=== PATIENT | female | born 1980 ===

== ENCOUNTER 2023-11-14 21:27 | Emergency (ER) | payer OTHER, SELFPAY ==
[2023-11-14 21:28] VITALS: BMI 23.8
[2023-11-14 21:30] VITALS: BP 124/84
[2023-11-14 21:53] LABS: % Basophils 0.8 % (0-2); % Eosinophils 0.9 % (0-6); % Immature Granulocytes 0.1 % (0-0.5); % Lymphocytes 40.6 % (20.5-51.1); % Monocytes 6.4 % (1.7-9.3); % Neutrophils 51.2 % (42.2-75.2); Absolute Basophils 0.1 10^3/uL (0-0.2); Absolute Eosinophils 0.1 10^3/uL (0-0.7); Absolute Lymphocytes 3.2 10^3/uL (1.2-3.4); Absolute Monocytes 0.5 10^3/uL (0.1-0.6); Hematocrit 37.4 % (37.0-47.0); Hemoglobin 12.6 g/dL (12.0-16.0); Mean Corp Hgb Conc. 33.7 g/dL (33.0-37.0); Mean Corpuscular Hgb 29.6 pg (27.0-31.0); Mean Corpuscular Volume 87.8 fL (81.0-99.0); Mean Platelet Volume 10.5 fL (7.4-10.4); Nucleated Red Blood Cells % 0 %; Platelet Count 253 10^3/uL (130-400); Red Blood Cell Count 4.26 10^6/uL (4.20-5.40); Red Cell Dist. Width 12.2 % (11.5-14.5); White Blood Cell Count 7.8 10^3/uL (4.8-10.8)
[2023-11-14 22:06] VITALS: BP 110/53
[2023-11-14 22:07] LABS: ALT (SGPT) 12 U/L (0-35); AST (SGOT) 20 U/L (14-36); Albumin 3.9 g/dl (3.5-5.0); Alkaline Phosphatase 63 U/L (38-126); Blood Urea Nitrogen 15 mg/dl (7-17); Calcium 9.3 mg/dl (8.4-10.2); Carbon Dioxide 30 mmol/L (22-30); Chloride 103 mmol/L (98-107); Glucose 110 mg/dl (70-99); Potassium 4.3 mmol/L (3.5-5.1); Sodium 139 mmol/L (135-145); Total Bilirubin 0.3 mg/dl (0.2-1.3); Total Protein 6.3 g/dl (6.3-8.2); eGFR > 60.00
[2023-11-14 22:17] LABS: Troponin I < 0.012 ng/ml
--- NOTE | 2023-11-14 22:32 | ED.GENMED ---
History of Present Illness
General
Chief Complaint: Chest Pain
Source: patient and family ([id number])
Exam Limitations: none
Time Seen by Provider: 11/14/23 21:49
Nursing documentation reviewed up to this point in time: agreed with
Travel History
Have you had any contact with someone who has COVID-19?: No
Do you have any symptoms of coronavirus? Fever > 100 degrees, chills, cough, shortness of breath, sore throat, loss of taste or smell, muscle aches, or headache?: No
History of Present Illness
History of Present Illness:
The patient is a healthy 42-year-old female who comes in with complaints of left-sided neck pain that started yesterday. Patient reports that the pain seems to radiate down into her left upper chest and down towards her left shoulder. Patient
reports that when she moves her head from [id number], she feels extreme pain and stiffness in her left neck. Patient denies shortness of breath and cough. She denies any recent long car rides or plane rides. She denies leg pain and leg
swelling. He denies a history of PE and DVT.
Past History
Past History
ED Past Medical History: None
ED Past Surgical History:
Social History
Tobacco: Non-smoker
Alcohol: None
Drug: None
Personal:
Living: with family
Employment: Employed
Family History
Family History: Other
Review of Systems
Review of Systems
Allergies reviewed?: Yes
Other source history: family
All Other Systems: ROS reviewed and negative except as documented in HPI and ROS
Constitutional: Reports no symptoms
EENT: Reports no symptoms
Respiratory: Reports no symptoms
Cardiac: Reports chest pain
ABD/GI: Reports no symptoms
: Reports no symptoms
Musculoskeletal: Reports muscle pain, muscle stiffness and neck pain
Skin: Reports no symptoms
Neurological: Reports no symptoms
Endocrine: Reports no symptoms
Hematologic/Lymphatic: Reports no symptoms
Psychiatric: Reports no symptoms
Phy Exam
Physical Exam
Physical Exam:
Physical Exam
General: no apparent distress, not acutely ill
Neck: supple. Tenderness along left lateral soft tissue neck area extending towards left humerus
Heart: s1/s2 regular rate and rhythm, no murmur. equal radial pulses.
Lungs: no acute respiratory distress. clear bilaterally
Abdomen: normal bowel sounds. not tender. no CVAT. No pulsatile mass
Neuro: alert and oriented. no focal neurological deficits
Skin: no rash
Psychiatric: well kept. interactive and cooperative
Extremities: no edema. no calf tenderness. negative homans. good distal pulses
Scores
Heart Score for Chest Pain Patients
STEMI patient?: Not applicable
Course
Orders/Labs/Results
Orders:
Orders
11/14/23 21:30
Electrocardiogram (*1) Urgent
Reason for Study: Chest Pain
EKG- Treatment ONCE
11/14/23 21:44
Complete Blood Count/With Diff Urgent
Comprehensive Metabolic Panel Urgent
Troponin I Urgent
11/14/23 22:28
Diazepam [Valium] 5 mg PO NOW STA
Ibuprofen [Motrin] 600 mg PO NOW STA
11/14/23 23:46
Oxycodone/Acetaminophen [Percocet 5/325] 1 tablet PO NOW STA
Abnormal Lab Results
11/14/23
21:44
MPV 10.5 H fL
(7.4-10.4)
Glucose 110 H mg/dl
(70-99)
11/14/23 21:44
11/14/23 21:44
Vital Signs
Initial and Last Documented VS:
Initial Vital Signs
Temp Pulse Resp BP Pulse Ox
98.2 F 77 16 124/84 98
11/14/23 21:30 11/14/23 21:30 11/14/23 21:30 11/14/23 21:30 11/14/23 21:30
Last Documented Vital Signs
Temp Pulse Resp BP Pulse Ox
98.2 F 65 18 109/58 96
11/14/23 21:30 11/15/23 00:30 11/15/23 00:30 11/15/23 00:00 11/15/23 00:30
MDM/Problems Addressed
Differential Diagnosis Includes:
Muscle spasm, torticollis, aortic dissection, PE, acute coronary syndrome
MDM/Problems Addressed:
Patient presents with acute left-sided neck pain and chest pain
*Pulse Oximetry
Patient hypoxic: no
*EKG
Interpreted by ED Provider?: Yes
Interpretation: normal
Comparison EKG: no comparison EKG present
Rate: normal
Rhythm: sinus
[place]: normal axis
Interval: normal interval
QRS Pattern: normal QRS
Ischemia: no ischemia
*[employer] Interpretation
Rate: normal
Interpretation: normal
Rhythm: sinus
*Critical Care Note
Total Time (30-74mins, 75-104mins- exclusive of procedures): Not Applicable
Data Reviewed
Source: patient and family
Patient Management
Social determinants of health affecting care: Living situation and Strong social support
Escalation/DeEscalation of care consider admission/obs:
Patient looks well and more comfortable. Symptoms are consistent with muscle spasm or torticollis. It is doubtful patient has aortic dissection given that she has a normal blood pressure and has no left scapular pain. She denies shortness of
breath and is doubtful she has a PE.
ED Attending Note
-
Portions of this chart may have been created with voice recognition software.� Occasional wrong word or��sound alike� substitutions may have occurred due to the inherent limitations of voice recognition software.
Discharge Plan
Departure
Patient Disposition: Home (Routine Discharge)
Date of Disposition: 11/15/23
Time of Disposition: 00:38
Patient with high blood pressure during this ER visit?: Yes
Condition: Good
Covid-19: Not Applicable
Discharge Problem:
Acute neck pain
Instructions: Neck Pain ED
Prescriptions:
New
oxycodone-acetaminophen [Percocet] 5-325 mg tablet
1 tab PO Q4HPRN PRN (Reason: pain) Qty: 6 0RF
Referrals:
Priscilla Keys DO [Family Provider] -
Activity Restrictions/Additional Instructions:
Take 600 mg of Motrin every 6-8 hours with food for the next 2 to 3 days. Apply heating pad to your neck and upper back area. If the pain becomes severe, you could take 1 Percocet tablet every 4 hours.
Interventions
Interventions:
*Risk Screen - Suicide Last Done: 11/14/23 22:36
*General Assessment Last Done: 11/14/23 21:30
*Neglect/Abuse Screening Last Done: 11/14/23 22:36
ED- Fall Risk Assessment Last Done: 11/14/23 22:36
*ED COVID-19 Vaccine History Last Done: 11/14/23 21:30
*Nursing Disposition Last Done: 11/15/23 00:46
ED- Cardiac Assessment Last Done: 11/14/23 22:34
Discharge Date and Time
Discharge Date/Time: 11/15/23 00:48
[2023-11-14] MEDS: VALIUM 5 MG PO (22:55)
[2023-11-14] MEDS: MOTRIN 600 MG PO (22:55)
[2023-11-14 23:00] VITALS: BP 111/66
[2023-11-14] MEDS: PERCOCET 5/325 1 TABLET PO (23:49)
[2023-11-15] VITALS: BP 109/58
== END 2023-11-15 00:48 | disposition home or self-care (01) ==
LOC: EMR 21:27
PROVIDERS: Emergency Medicine; EMERGENCY PHYSICIAN Emergency Medicine; FAMILY PHYSICIAN Family Medicine
DX: M54.2 Cervicalgia (principal); M79.602 Pain in left arm; R07.89 Other chest pain; M62.838 Other muscle spasm; M79.18 Myalgia, other site; M43.6 Torticollis; R03.0 Elevated blood-pressure reading, without diagnosis of hypertension
CPT/HCPCS: 99284; 80053; 84484; 85025; 93005

== ENCOUNTER → 2023-11-16 16:19 | Outpatient (REF) | payer OTHER, SELFPAY | LOC: RAD 16:19 | PROVIDERS: ATTENDING PHYSICIAN Student in an Organized Health Care Education/Training Program | DX: M54.2 Cervicalgia (principal); M25.512 Pain in left shoulder | CPT/HCPCS: 72052; 73030 ==

== ENCOUNTER → 2024-02-09 06:41 | Outpatient (REF) | payer OTHER, SELFPAY | LOC: MRI 06:41 | PROVIDERS: ATTENDING PHYSICIAN Physician Assistant; FAMILY PHYSICIAN Student in an Organized Health Care Education/Training Program | DX: M54.12 Radiculopathy, cervical region (principal) | CPT/HCPCS: 72141 ==

== ENCOUNTER → 2024-11-23 18:55 | Outpatient (REF) | payer OTHER, SELFPAY | LOC: WDC 18:55 | PROVIDERS: ATTENDING PHYSICIAN Student in an Organized Health Care Education/Training Program | DX: Z12.31 Encounter for screening mammogram for malignant neoplasm of breast (principal) | CPT/HCPCS: 77063; 77067 ==

== ENCOUNTER → 2024-12-06 09:05 | Outpatient (REF) | payer OTHER, SELFPAY | LOC: WDC 09:05 | PROVIDERS: ATTENDING PHYSICIAN Student in an Organized Health Care Education/Training Program | DX: R92.8 Other abnormal and inconclusive findings on diagnostic imaging of breast (principal) | CPT/HCPCS: 76642 ==